=== PATIENT | female | born 1930 | race African-American/Black ===

== ENCOUNTER 2019-03-07 21:13 | Inpatient (IN) | payer BC, OTHER ==
[~2019-03-07] VITALS: Ht 162.6 cm; Wt 65.8 kg
[2019-03-07] MEDS ORDERED: SODIUM CHLORIDE 0.9% 1,000 ML IV ONE (21:45)
[2019-03-07] MEDS ORDERED: ONDANSETRON HCL 4MG/2ML INJ IV STA (21:45)
[2019-03-07 22:06] LABS: BASOPHILS % 0.9 % (0.0-2.0); EOSINOPHILS % 0.8 % (0.0-5.0); HEMATOCRIT. 42.9 % (36.0-48.0); HEMOGLOBIN. 13.9 g/dL (12.0-16.0); LYMPHOCYTES % 18.2 % (20.0-50.0); MEAN CORPUSCULAR HEMOGLOBIN 28.7 pg (28.0-32.0); MEAN CORPUSCULAR VOLUME 88.3 fL (81.0-99.0); MEAN PLATELET VOLUME 9.4 fl (7.4-10.4); MONOCYTES % 5.8 % (2.0-8.0); NEUTROPHILS % 74.3 % (40.0-76.0); PLATELET 131 x1000/uL (130-400); RED BLOOD CELL COUNT 4.86 mill/uL (4.2-5.4); RED CELL DISTRIBUTION WIDTH 14.8 % (11.6-14.6)
[2019-03-07 22:09] LABS: CHLORIDE 111 mEq/L (98-107)
[2019-03-07 22:29] LABS: T4 FREE 1.07 ng/dL (0.76-1.46)
[2019-03-07 23:13] LABS: CLARITY URINE CLEAR (CLEAR); COLOR URINE YELLOW (YELLOW); KETONES URINE NEGATIVE (NEGATIVE); LEUKOCYTE ESTERASE URINE NEGATIVE (NEGATIVE); NITRITE URINE NEGATIVE (NEGATIVE); OCCULT BLOOD URINE 1+ (NEGATIVE); PH URINE 7.5 (4.5-8.0); PROTEIN URINE TRACE (NEGATIVE)
[2019-03-08] VITALS (62 sets, daily range): BP systolic 128–222; BP diastolic 26–142
[2019-03-08] MEDS ORDERED: ONDANSETRON HCL 4MG/2ML INJ IV PRN (00:15)
[2019-03-08] MEDS ORDERED: ACETAMINOPHEN 650MG SUPP PR PRN (00:15)
[2019-03-08] MEDS ORDERED: DEXT 5%/0.9% NACL 1,000 ML IV SCH (00:15)
[2019-03-08] MEDS ORDERED: ACETAMINOPHEN 325MG TABLET PO PRN (00:15)
[2019-03-08] MEDS ORDERED: ACETAMINOPHEN 650MG/20.3ML UDC GT PRN (00:15)
[2019-03-08] MEDS: DEXT 5%/0.9% NACL 1,000 ML IV SCH ×2 (01:20→20:16)
[2019-03-08] MEDS ORDERED: DOPAMINE 400MG/250ML PREMIX 250 ML IV SCH (02:00)
[2019-03-08] MEDS ORDERED: KCL 20MEQ/100ML PREMIX 100 ML IV NR (02:00)
[2019-03-08 06:19] LABS: CREATINE KINASE 165 IU/L (26-192)
[2019-03-08 06:21] LABS: CREATINE KINASE MB FRACTION 2.1 ng/mL (0.5-3.6)
[2019-03-08 07:52] LABS: BASOPHILS % 0.9 % (0.0-2.0); EOSINOPHILS % 1.2 % (0.0-5.0); HEMATOCRIT. 37.2 % (36.0-48.0); HEMOGLOBIN. 12.4 g/dL (12.0-16.0); LYMPHOCYTES % 30.1 % (20.0-50.0); MEAN CORPUSCULAR HEMOGLOBIN 29.2 pg (28.0-32.0); MEAN CORPUSCULAR VOLUME 87.7 fL (81.0-99.0); MEAN PLATELET VOLUME 10.1 fl (7.4-10.4); NEUTROPHILS % 59.8 % (40.0-76.0); PLATELET 115 x1000/uL (130-400); RED BLOOD CELL COUNT 4.24 mill/uL (4.2-5.4); RED CELL DISTRIBUTION WIDTH 14.6 % (11.6-14.6)
[2019-03-08 07:53] LABS: CHLORIDE 114 mEq/L (98-107)
[2019-03-08] MEDS ORDERED: PNEUMOCOCCAL 23-VAL P-SAC VAC 0.5 ML IM ONE (08:00)
[2019-03-08 08:04] LABS: HDL CHOLESTEROL 88 mg/dL (40-59); LDL CHOLESTEROL 112 mg/dL (5-100)
[2019-03-08 08:09] LABS: CLARITY URINE CLEAR (CLEAR); COLOR URINE YELLOW (YELLOW); KETONES URINE NEGATIVE (NEGATIVE); LEUKOCYTE ESTERASE URINE NEGATIVE (NEGATIVE); NITRITE URINE NEGATIVE (NEGATIVE); OCCULT BLOOD URINE 1+ (NEGATIVE); PROTEIN URINE TRACE (NEGATIVE); SPECIFIC GRAVITY URINE 1.011 (1.005-1.030)
[2019-03-08 08:16] LABS: *BARBITURATES SCREEN URINE NEGATIVE (NEGATIVE); *BENZODIAZEPINES SCREEN URINE NEGATIVE (NEGATIVE)
[2019-03-08 08:17] LABS: *COCAINE SCREEN URINE NEGATIVE (NEGATIVE); CANNABINOID URINE SCREEN NEGATIVE (NEGATIVE); METHADONE URINE SCREEN NEGATIVE (NEGATIVE); PHENCYCLIDINE URINE SCREEN NEGATIVE (NEGATIVE)
[2019-03-08 08:18] LABS: *AMPHETAMINES SCREEN URINE NEGATIVE (NEGATIVE)
[2019-03-08 08:23] LABS: OPIATES URINE SCREEN NEGATIVE (NEGATIVE)
[2019-03-08] MEDS ORDERED: SERT100T MT (10:12)
[2019-03-08] MEDS ORDERED: AMLO5TAB4 MT (10:12)
[2019-03-08] MEDS ORDERED: MEMA10TA2 PO (10:12)
[2019-03-08] MEDS ORDERED: HYDRALAZINE 20MG/ML VIAL IV SCH (10:15)
[2019-03-08] MEDS ORDERED: HYDRALAZINE 20MG/ML VIAL IV PRN (10:30)
[2019-03-08 17:26] LABS: CREATINE KINASE 142 IU/L (26-192)
[2019-03-08 17:28] LABS: CREATINE KINASE MB FRACTION 1.6 ng/mL (0.5-3.6)
[2019-03-09] VITALS (30 sets, daily range): BP systolic 89–208; BP diastolic 52–102
[2019-03-09 06:03] LABS: CHLORIDE 112 mEq/L (98-107)
[2019-03-09 06:07] LABS: EOSINOPHILS % 2.7 % (0.0-5.0); HEMATOCRIT. 38.8 % (36.0-48.0); HEMOGLOBIN. 12.8 g/dL (12.0-16.0); MEAN CORPUSCULAR HEMOGLOBIN 28.7 pg (28.0-32.0); MEAN CORPUSCULAR VOLUME 87.3 fL (81.0-99.0); MEAN PLATELET VOLUME 9.1 fl (7.4-10.4); MONOCYTES % 9.5 % (2.0-8.0); NEUTROPHILS % 52.8 % (40.0-76.0); PLATELET 117 x1000/uL (130-400); RED BLOOD CELL COUNT 4.44 mill/uL (4.2-5.4); RED CELL DISTRIBUTION WIDTH 14.7 % (11.6-14.6)
[2019-03-09] MEDS ORDERED: LIDOCAINE HCL 1% 20ML VIAL (Pyxis) INJ ONE (07:54)
[2019-03-09] MEDS ORDERED: IODIXANOL 320MG/ML 100 ML BOTTLE IV ONE (07:54)
[2019-03-09] MEDS ORDERED: CEFAZOLIN 1000MG PREMIX 100 ML IV ONE (07:55)
[2019-03-09] MEDS ORDERED: GENTAMICIN/NS IRRIGATION 500 ML IR ONE (07:55)
[2019-03-09] MEDS ORDERED: MIDAZOLAM HCL 2 MG/2 ML VIAL ONE (08:46)
[2019-03-09] MEDS ORDERED: FENTANYL CITRATE/PF 50MCG/ML 2ML VIAL ONE (08:46)
[2019-03-09] MEDS ORDERED: DIPHENHYDRAMINE 50MG/ML VIAL ONE (08:48)
[2019-03-09] MEDS ORDERED: GENTAMICIN SULF 40MG/ML 2ML VIAL ONE (09:39)
[2019-03-09] MEDS ORDERED: CLONIDINE 0.2MG TABLET PO PRN (11:45)
[2019-03-09] MEDS ORDERED: LOSARTAN POTASSIUM 50 MG TABLET PO SCH (12:15)
[2019-03-09] MEDS: HYDROCODONE/ACETAMINOPHEN 5/325MG TABLET PO PRN (12:24)
[2019-03-09] MEDS: LOSARTAN POTASSIUM 25 MG TABLET PO SCH ×2 (12:24→20:35)
[2019-03-09] MEDS: AMLODIPINE 5MG TABLET PO SCH ×2 (12:25→20:35)
[2019-03-09] MEDS ORDERED: POTASSIUM CHLORIDE 20MEQ TABLET SR PO NR (14:00)
[2019-03-09] MEDS: HYDROMORPHONE HCL/PF 2MG/ML CPJ IV PRN ×2 (14:14→20:58)
[2019-03-09] MEDS: DEXT 5%/0.9% NACL 1,000 ML IV SCH (20:35)
[2019-03-10] VITALS (25 sets, daily range): BP systolic 105–162; BP diastolic 61–89
[2019-03-10] MEDS: HYDROMORPHONE HCL/PF 2MG/ML CPJ IV PRN (03:33)
[2019-03-10 05:37] LABS: EOSINOPHILS % 1.6 % (0.0-5.0); HEMOGLOBIN. 13.2 g/dL (12.0-16.0); LYMPHOCYTES % 23.4 % (20.0-50.0); MEAN CORPUSCULAR HEMOGLOBIN 29.2 pg (28.0-32.0); MEAN CORPUSCULAR VOLUME 88.1 fL (81.0-99.0); MEAN PLATELET VOLUME 9.7 fl (7.4-10.4); MONOCYTES % 9.1 % (2.0-8.0); NEUTROPHILS % 64.9 % (40.0-76.0); PLATELET 115 x1000/uL (130-400); RED BLOOD CELL COUNT 4.54 mill/uL (4.2-5.4); RED CELL DISTRIBUTION WIDTH 14.6 % (11.6-14.6)
[2019-03-10 05:39] LABS: CHLORIDE 111 mEq/L (98-107)
[2019-03-10] MEDS: AMLODIPINE 5MG TABLET PO SCH (09:09)
[2019-03-10] MEDS: LOSARTAN POTASSIUM 25 MG TABLET PO SCH (09:09)
[2019-03-10] MEDS ORDERED: MEMANTINE HCL 5MG TABLET PO SCH (09:30)
[2019-03-10] MEDS: HYDROCODONE/ACETAMINOPHEN 5/325MG TABLET PO PRN (11:35)
[2019-03-10] MEDS ORDERED: CEPH250C2 MT (19:15)
[2019-03-10] MEDS ORDERED: TRAM50TA94 MT (19:15)
[2019-03-25] MEDS ORDERED: DEXT 5%/0.9% NACL 1,000 ML IV SCH (00:08)
== END 2019-03-10 19:40 | disposition home or self-care (01) | DRG 243 ==
LOC: ER 21:55 → CVICU 23:08 → EDBEDREQTM 23:13 → EDBEDREQSVC 23:13 → EDBEDREQ 23:13 → ENRESERV 03-08 00:09 → 5WST 03-10 13:42
PROVIDERS: ADMIT Family Medicine; ATTEND Family Medicine
PROC: B517YZZ Fluoroscopy of Left Subclavian Vein using Other Contrast (ICD-10-PCS; principal; 2019-03-09)
PROC: 0JH606Z Insertion of Pacemaker, Dual Chamber into Chest Subcutaneous Tissue and Fascia, Open Approach (ICD-10-PCS; 2019-03-09)
PROC: 02HK3JZ Insertion of Pacemaker Lead into Right Ventricle, Percutaneous Approach (ICD-10-PCS; 2019-03-09)
PROC: 02H63JZ Insertion of Pacemaker Lead into Right Atrium, Percutaneous Approach (ICD-10-PCS; 2019-03-09)
PROC: B516YZZ Fluoroscopy of Right Subclavian Vein using Other Contrast (ICD-10-PCS; 2019-03-09)
DX: I44.2 Atrioventricular block, complete (principal); E46 Unspecified protein-calorie malnutrition; Q26.1 Persistent left superior vena cava; F02.80 Dementia in other diseases classified elsewhere, unspecified severity, without behavioral disturbance, psychotic disturbance, mood disturbance, and anxiety; G30.9 Alzheimer's disease, unspecified; I10 Essential (primary) hypertension; D69.6 Thrombocytopenia, unspecified; E78.5 Hyperlipidemia, unspecified; Z79.899 Other long term (current) drug therapy; Z87.891 Personal history of nicotine dependence; Z95.0 Presence of cardiac pacemaker; Z68.24 Body mass index [BMI] 24.0-24.9, adult
CPT/HCPCS: 33208; 36415; 71045; 75820; 80048; 80061; 80305; 82550; 82553; 83735; 83880; 84439; 84443; 84480; 84484; 93005; 93306; 96365; 99285; A4565; C1785; C1892; C1893; C1898; J0360; J0690; J1170; J1200; J1580; J2250; J2405; J3010; J3480; J3490; J7030; J7042; J7050; Q9967